=== PATIENT | female | born 1970 | race Hispanic/Latino ===

== ENCOUNTER 2019-05-05 08:40 | Emergency (ER) | payer SELFPAY ==
[2019-05-05 09:07] VITALS: BP 131/71
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
== END 2019-05-05 11:20 | disposition home or self-care (01) ==
LOC: ED 08:40
DX: M54.2 Cervicalgia (principal); M54.9 Dorsalgia, unspecified; Z79.899 Other long term (current) drug therapy; V89.2XXA Person injured in unspecified motor-vehicle accident, traffic, initial encounter; Y93.89 Activity, other specified; Y92.488 Other paved roadways as the place of occurrence of the external cause; Y99.8 Other external cause status
CPT/HCPCS: 99282